=== PATIENT | female | born 1960 | race Two or more races ===

== ENCOUNTER 2024-07-15 07:56 | Outpatient (CLI) | payer OTHER | END 2024-07-15 07:57 | disposition home or self-care (01) | LOC: NUCLEAR 07:56 | DX: C10.8 Malignant neoplasm of overlapping sites of oropharynx (principal) ==

== ENCOUNTER 2025-01-30 07:36 | Outpatient (CLI) | payer OTHER | END 2025-01-30 07:37 | disposition home or self-care (01) | LOC: NUCLEAR 07:36 | DX: C05.1 Malignant neoplasm of soft palate (principal) ==